=== PATIENT | female | born 1965 | race Caucasian/White ===

== ENCOUNTER 2017-02-28 16:46 | Emergency (ER) | payer BC ==
[~2017-02-28] VITALS: Ht 162.6 cm; Wt 73.6 kg
[2017-02-28 16:49] VITALS: TEMP 95.3
[2017-02-28] MEDS ORDERED: D3-5050000 IU (17:25)
[2017-02-28] MEDS ORDERED: BIOTIN5000 MCG PO (17:25)
[2017-02-28] MEDS ORDERED: TAMIFLU 75MG75 MG PO (17:25)
[2017-02-28] MEDS ORDERED: ADIPEX-P37.5 MG PO (17:25)
[2017-02-28] MEDS ORDERED: DHEA 50 MG TAB1 EACH PO (17:25)
[2017-02-28] MEDS ORDERED: EXCEDRIN1 TAB PO (17:26)
[2017-02-28] MEDS ORDERED: INDERAL40 MG PO (17:26)
[2017-02-28] MEDS ORDERED: PROMETRIUM200 M1 PO (17:26)
[2017-02-28] MEDS ORDERED: CLIMARA 0.1 PATCH.W1 TD (17:27)
[2017-02-28] MEDS ORDERED: KENALOG-1010 MG/ML (17:27)
[2017-02-28] MEDS ORDERED: TRIAMCINOLONE A15 G3 TP (17:28)
[2017-02-28] MEDS ORDERED: ZOFRAN ODT4 MG PO (18:11)
[2017-02-28] MEDS ORDERED: NORCO 325 MG-51 TAB PO (18:11)
[2017-02-28 18:55] VITALS: BP 127/87; PULSE 62
== END 2017-02-28 18:55 | disposition home or self-care (01) ==
LOC: COL.ER 16:46
DX: S52.572A Other intraarticular fracture of lower end of left radius, initial encounter for closed fracture (principal); W00.0XXA Fall on same level due to ice and snow, initial encounter; Y93.21 Activity, ice skating; Y92.330 Ice skating rink (indoor) (outdoor) as the place of occurrence of the external cause
CPT/HCPCS: J2270; J2405; J2765; J7030